=== PATIENT | female | born 1945 | race Caucasian/White ===

== ENCOUNTER 2017-06-29 08:00 | Outpatient (CLI) | payer MEDICARE, OTHER | END 2017-06-29 08:01 | disposition home or self-care (01) | LOC: BICMAMMO 08:00 | PROVIDERS: ATTEND Family Medicine | DX: N63.20 Unspecified lump in the left breast, unspecified quadrant (principal) | CPT/HCPCS: 76642; G0279 ==

== ENCOUNTER 2017-07-16 15:34 | Outpatient (CLI) | payer MEDICARE, OTHER ==
--- NOTE | 2017-07-16 15:57 | SJPRAD ---
RADIOGRAPH RIGHT KNEE TWO VIEWS: 07/16/2017 HISTORY: A 71-year-old female with chronic knee pain. COMPARISON: None. FINDINGS: Medial compartment: Moderate to severe joint space narrowing. Moderate osteophytosis. Vacuum joint phenomenon. Lateral compartment: Moderate osteophytosis without significant joint space narrowing. Patellofemoral compartment: Severe joint space narrowing and moderate to severe osteophytosis. Minimal joint effusion. 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 POS: KEESHA
--- NOTE | 2017-07-16 15:59 | SJPRAD ---
LEFT KNEE TWO VIEW 07/16/17 HISTORY: Chronic pain. COMPARISON: None. FINDINGS: There is medial compartment narrowing. Tricompartmental osteoarthritic disease including sclerosis an d osteophyte formation. Moderate joint effusion. Enthesopathic changes of the distal patellar tendon. IMPRESSION: 1. Tricompartmental degenerative disease, worse in the medial compartment with joint space narro wing. 2. Likely reactive joint effusion. POS: [facility]
== END 2017-07-16 15:35 | disposition home or self-care (01) ==
LOC: MWLC RAD 15:34
PROVIDERS: ATTEND Family Medicine
DX: M25.561 Pain in right knee (principal); M17.0 Bilateral primary osteoarthritis of knee

== ENCOUNTER 2018-07-01 12:50 | Outpatient (CLI) | payer MEDICARE, OTHER | END 2018-07-01 12:51 | disposition home or self-care (01) | LOC: BICMAMMO 12:50 | PROVIDERS: ATTEND Family Medicine | DX: Z12.31 Encounter for screening mammogram for malignant neoplasm of breast (principal) | CPT/HCPCS: 77063; 77067 ==

== ENCOUNTER 2019-07-03 11:18 | Outpatient (CLI) | payer MEDICARE, OTHER ==
--- NOTE | 2019-07-03 12:44 | MMO ---
Bilateral MAMMO Bilat Screen [facility]. CLINICAL HISTORY: Patient is 73 years old and is seen for screening. The patient has no family history of breast cancer. The patient has no personal history of cancer. VIEWS: The views performed were: bilateral craniocaudal with tomosynthesis and bilateral mediolateral oblique with tomosynthesis. FILMS COMPARED: The present examination has been compared to prior imaging studies performed at [facility] on 03/31/2012, 10/19/2016, 06/29/2017 and 07/01/2018. This study has been interpreted with the assistance of computer-aided detection. MAMMOGRAM FINDINGS: There are scattered fibroglandular densities. There are stable benign appearing calcifications seen in both breasts. Fat necrosis is again noted in the left breast. There are no suspicious masses, suspicious calcifications, or new areas of architectural distortion. IMPRESSION: THERE IS NO MAMMOGRAPHIC EVIDENCE OF MALIGNANCY. A ROUTINE FOLLOW-UP MAMMOGRAM IN 1 YEAR IS RECOMMENDED. THE RESULTS OF THIS EXAM WERE SENT TO THE PATIENT. ACR BI-RADS Category 2 - Benign finding MAMMOGRAPHY NOTE: 1. A negative mammogram report should not delay a biopsy if a dominant of clinically suspicious mass is present. 2. Approximately 10% to 15% of breast cancers are not detected by mammography. 3. Adenosis and dense breasts may obscure an underlying neoplasm. Reported by: ANISA GALLARDO MD Electonically Signed: [id number]
== END 2019-07-03 11:19 | disposition home or self-care (01) ==
LOC: BICMAMMO 11:18
PROVIDERS: ATTEND Family Medicine
DX: Z12.31 Encounter for screening mammogram for malignant neoplasm of breast (principal)
CPT/HCPCS: 77063; 77067

== ENCOUNTER 2021-07-28 13:49 | Outpatient (CLI) | payer MEDICARE, OTHER | END 2021-07-28 13:50 | disposition home or self-care (01) | LOC: BICMAMMO 13:49 | PROVIDERS: ATTEND Family Medicine | DX: N64.4 Mastodynia (principal) | CPT/HCPCS: 77066; G0279 ==

== ENCOUNTER 2022-09-02 13:50 | Outpatient (CLI) | payer MEDICARE, OTHER | END 2022-09-02 13:51 | disposition home or self-care (01) | LOC: BICMAMMO 13:50 | PROVIDERS: ATTEND Family Medicine | DX: Z12.31 Encounter for screening mammogram for malignant neoplasm of breast (principal); Z13.820 Encounter for screening for osteoporosis; N95.9 Unspecified menopausal and perimenopausal disorder; E55.9 Vitamin D deficiency, unspecified | CPT/HCPCS: 77063; 77067; 77080 ==